=== PATIENT | female | born 2000 | race American Indian/Alaskan Native ===

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

== ENCOUNTER 2021-02-04 21:20 | Inpatient (IN) | payer MEDICAID ==
[2021-02-04] MEDS ORDERED: Diphtheria,Pertussis(Acell),Tetanus Vaccine 0.5 ML Syringe IM ONE (21:52)
[2021-02-04] MEDS: Lactated Ringers 1,000 ML IV SCH (22:05)
[2021-02-04 22:17] LABS: AMPHETAMINES,URINE NEGATIVE (NEGATIVE); BARBITURATES,URINE NEGATIVE (NEGATIVE); BENZODIAZEPINE,URINE NEGATIVE (NEGATIVE); MDMA (ECSTASY), URINE NEGATIVE (NEGATIVE); METHADONE,URINE NEGATIVE (NEGATIVE); METHAMPHETAMINES,URINE NEGATIVE (NEGATIVE); OPIATES,URINE NEGATIVE (NEGATIVE); OXYCODONE,URINE NEGATIVE (NEGATIVE); PHENCYCLIDINE,URINE NEGATIVE (NEGATIVE); TCA,URINE NEGATIVE (NEGATIVE)
[2021-02-04] MEDS ORDERED: Oxytocin/Normal Saline 60 UNIT/1,000 ML BAG ONE (22:53)
[2021-02-04] MEDS ORDERED: Morphine PF 10 MG/10 ML SDV ONE (22:57)
[2021-02-04] MEDS ORDERED: Ketorolac 30 MG/ML SDV IVPUSH ONE (22:57)
[2021-02-04] MEDS ORDERED: Propofol 200 MG/20 ML SDV IV ONE (22:57)
[2021-02-04] MEDS ORDERED: ceFAZolin 2 GM in Premix Bag 1 BAG IV ONE (23:00)
--- NOTE | 2021-02-04 23:43 | HP ---
CHIEF COMPLAINT: "I'm having contractions." HISTORY OF PRESENT ILLNESS: Ms. Harmon is a 20-year-old, 2, para 1-0-0- 1 female with last menstrual period unsure, who reports to [facility] in [facility] because of increasing force and frequency of contractions. She states she has been faby since 3 a.m. this morning and they have gotten worse. She was brought in by ambulance. She states that she has to push at times. We did get an ultrasound done and some new OB labs. Ultrasound put her at approximately 36 weeks gestation, aba breech presentation. She denies any nausea, vomiting, or diarrhea. No fever or chills. No hematochezia, hematemesis, hematuria. No dysuria, frequency or urgency with urination. No leg pain or back pain. All her abdominal discomfort in her abdomen is from her contractions. PAST MEDICAL HISTORY: Positive for asthma. No history of diabetes, cancer, thyroid disease, hypertension, heart disease, seizure disorder, thromboembolic disease, or breast lesions. She has never had a blood transfusion. FAMILY HISTORY: Positive for diabetes, cancer, heart disease, hypertension. No family history of kidney disease or thyroid disease. SOCIAL HISTORY: Patient smokes half a pack of cigarettes a day. She denies any alcohol use or illicit drug use. She lives in [facility]. She is single. She did get Moderna Covid Vaccine in . She just moved back to [facility] from [place]. OBSTETRICAL HISTORY: 06/23/2019, delivery of a viable male infant weighing 6 pounds 12 ounces via normal spontaneous vaginal delivery at 38 weeks gestation. No sequelae. She does not have that child with her at this time. ALLERGIES: No known drug allergies. PAST SURGICAL HISTORY: [place] teeth extraction. REVIEW OF SYSTEMS: All pertinent positive and negative review of systems per HPI. All other systems reviewed and negative. 10 point review of systems discussed with the patient. She has no other issues. OBJECTIVE: General: Well-developed, well-nourished female, in acute distress secondary to contractions. HEENT: Unremarkable. Neck: Supple without adenopathy. No thyromegaly. Lungs: Clear to auscultation. No wheezing, rhonchi, or rales noted. Cardiovascular: Regular rate and rhythm without murmurs. Abdomen: Gravid, nontender. Fundal height 36 cm, breech presentation. Back: No CVA tenderness. Genitourinary: Cervix completely dilated, bulging bag of mcdaniel, breech, noted to be ballotable and high. Extremities: No edema, erythema, or tenderness noted. ASSESSMENT: 1. A 20-year-old 2, para 1-0-0-1 female. 2. Active labor. 3. Completely dilated. 4. Aba breech presentation. 5. No care. 6. Nicotine addiction. PLAN: 1. The patient will be taken back for a primary section. 2. New OB labs accomplished today including CBC, rubella, syphilis, hepatitis C antibody, hepatitis B surface antigen, type and screen, GC, chlamydia, and group B strep. 3. The risks, benefits, complications, and side effects of the procedure were discussed with the patient including infection, bleeding, injury to the bowel, bladder, ureters, blood vessels, and fetus were discussed. Despite this, she still wants to have the procedure done. 4. All questions answered. [facility] /[id number] COMFORT
--- NOTE | 2021-02-04 23:48 | US ---
PROCEDURE INFORMATION: Exam: US After First Trimester, Transabdominal Exam date and time: 02/04/2021 9:44 PM Age: 20 years old Clinical indication: Pain; Other: Labor; Gestational age or lmp: 36 w 0 d; ; Additional info: No care, ? labor TECHNIQUE: Imaging protocol: Real-time transabdominal ultrasound of the maternal uterus with image documentation. Exam focused on the clinical indication. COMPARISON: No relevant prior studies available. FINDINGS: Gestation: Single live intrauterine gestation. heart rate: 132 bpm. presentation: Breech Placenta: Unremarkable. No evidence of previa. Placenta is fundal. Amniotic fluid: Amniotic fluid is appropriate for gestational age. MVP 3.8 cm; NANDO 12.6. Other: Subjectively decreased movements. BIOMETRY: Gestational age (AUA): 36 weeks 0 days Estimated due date (AUA): 03/04/2021 Estimated weight: 2474 g Biparietal diameter: 9.1 cm, 37 weeks 1 day Head circumference: 33.0 cm, 37 weeks 4 days Abdominal circumference: 29.1 cm, 33 weeks 1 day Femur length: 6.9 cm, 35 weeks 5 days MATERNAL: Uterus: Unremarkable. Cervix: Not measured. Right adnexa: Not evaluated. Left adnexa: Not evaluated. IMPRESSION: 1. Single living intrauterine fetus with estimated gestational age 36 weeks 0 days based on average ultrasound measurements in breech presentation. 2. Estimated weight 2474 g (5 lb 7 oz). Of note, the AC is measuring 4 weeks behind the BPD, which may reflect growth restriction. 3. Appropriate amniotic fluid. 4. Fundal placenta. 5. Subjectively decreased movements.
[2021-02-05] MEDS ORDERED: Tranexamic Acid 1,000 MG in Sodium Chloride 0.9% 100 ML IV PRN (00:03)
[2021-02-05] MEDS ORDERED: Carboprost Tromethamine 250 MCG/1 ML Amp IM PRN (00:03)
[2021-02-05] MEDS ORDERED: Acetaminophen 325 MG Tab PO PRN (00:03)
[2021-02-05] MEDS ORDERED: Naloxone 2 MG/2 ML Syringe IVPUSH PRN (00:03)
[2021-02-05] MEDS ORDERED: diphenhydrAMINE 50 MG/ML SDV IVPUSH PRN (00:03)
[2021-02-05] MEDS ORDERED: Methylergonovine 0.2 MG/1 ML Amp IM PRN (00:03)
[2021-02-05] MEDS ORDERED: Ondansetron 4 MG/2 ML SDV IVPUSH PRN (00:03)
[2021-02-05] MEDS ORDERED: Misoprostol 400 MCG (4 X 100 MCG TAB) RECTAL PRN (00:03)
[2021-02-05] MEDS ORDERED: ePHEDrine 50 MG/ML SDV IVPUSH PRN (00:03)
[2021-02-05] MEDS ORDERED: Oxytocin/Normal Saline 30 UNIT/500 ML BAG IV SCH (00:15)
--- NOTE | 2021-02-05 04:29 | PCM.SURGPN ---
- General Info Date of Service: 02/05/21 (POD/PPD # 1 S/P Primary section) Date of Surgery/Procedure: 02/04/21 POD#: 1 Post-Op Diagnosis: Breech presentation Active labor Functional Status: Reports: Pain Controlled, Tolerating Diet, Ambulating - Review of Systems General: Reports: No Symptoms HEENT: Reports: No Symptoms Pulmonary: Reports: No Symptoms Cardiovascular: Reports: No Symptoms Gastrointestinal: Reports: No Symptoms Genitourinary: Reports: No Symptoms Musculoskeletal: Reports: No Symptoms Skin: Reports: No Symptoms Neurological: Reports: No Symptoms Psychiatric: Reports: No Symptoms - Patient Data Vitals - Most Recent: Last Vital Signs Temp 96.8 F L 02/04/21 23:51 Pulse 76 02/05/21 00:17 Resp 18 02/05/21 00:17 BP 111/80 02/05/21 00:17 Pulse Ox 98 02/05/21 00:17 Weight - Most Recent: 220 lb I&O - Last 24 Hours: Intake & Output 02/04/21 02/04/21 02/05/21 14:59 22:59 06:59 Intake Total 282 Output Total 175 Balance 107 Lab Results Last 24 Hrs: Laboratory Results - last 24 hr 02/04/21 02/04/21 02/04/21 Range/Units 21:33 21:33 21:33 WBC (5.0-10.0) 10^3/uL RBC (4.2-5.4) 10^6/uL Hgb (12.0-16.0) g/dL Hct (37.0-47.0) % MCV (80-100) fL MCH (27.0-34.0) pg MCHC (33.0-35.0) g/dL Plt Count (150-450) 10^3/uL Urine Color Yellow (YELLOW) Urine Appearance Cloudy (CLEAR) Urine pH 7.5 (5.0-9.0) Ur Specific [place] 1.020 (1.005-1.030) Urine Protein Negative (NEGATIVE) Urine Glucose (UA) Negative (NEGATIVE) Urine Ketones Negative (NEGATIVE) Urine Occult Blood Negative (NEGATIVE) Urine Nitrite Negative (NEGATIVE) Urine Bilirubin Negative (NEGATIVE) Urine Urobilinogen 0.2 (0.2-1.0) mg/dL Ur Leukocyte Esterase Moderate H (NEGATIVE) Urine RBC 0-5 (0-5) /HPF Urine WBC 10-20 H (0-5/HPF) /HPF Ur Epithelial Cells Few (NOT SEEN) /HPF Amorphous Sediment Moderate H (NOT SEEN) /HPF Urine Bacteria Few (0-FEW/HPF) /HPF Urine Mucus Few H (NOT SEEN) /LPF Urine Other See note Urine Opiates Screen Negative (NEGATIVE) Ur Oxycodone Screen Negative (NEGATIVE) Urine Methadone Screen Negative (NEGATIVE) Ur Barbiturates Screen Negative (NEGATIVE) U Tricyclic Antidepress Negative (NEGATIVE) Ur Phencyclidine Scrn Negative (NEGATIVE) Ur Amphetamine Screen Negative (NEGATIVE) U Methamphetamines Scrn Negative (NEGATIVE) Urine MDMA Screen Negative (NEGATIVE) U Benzodiazepines Scrn Negative (NEGATIVE) Urine Cocaine Screen Negative (NEGATIVE) U Marijuana (THC) Screen Negative (NEGATIVE) HIV-1 Antibody (NONREACTIVE) HIV-2 Antibody (NONREACTIVE) HIV P24 Antigen (NONREACTIVE) SARS-CoV-2 RNA (PARISH) Negative (NEGATIVE) Blood Type Gel Antibody Screen 02/04/21 02/04/21 02/04/21 Range/Units 21:38 21:38 21:38 WBC 9.9 (5.0-10.0) 10^3/uL RBC 2.83 L (4.2-5.4) 10^6/uL Hgb 10.2 L (12.0-16.0) g/dL Hct 24.3 L (37.0-47.0) % MCV 85.9 (80-100) fL MCH 36.0 H (27.0-34.0) pg MCHC 42.0 H (33.0-35.0) g/dL Plt Count 252 (150-450) 10^3/uL Urine Color (YELLOW) Urine Appearance (CLEAR) Urine pH (5.0-9.0) Ur Specific [place] (1.005-1.030) Urine Protein (NEGATIVE) Urine Glucose (UA) (NEGATIVE) Urine Ketones (NEGATIVE) Urine Occult Blood (NEGATIVE) Urine Nitrite (NEGATIVE) Urine Bilirubin (NEGATIVE) Urine Urobilinogen (0.2-1.0) mg/dL Ur Leukocyte Esterase (NEGATIVE) Urine RBC (0-5) /HPF Urine WBC (0-5/HPF) /HPF Ur Epithelial Cells (NOT SEEN) /HPF Amorphous Sediment (NOT SEEN) /HPF Urine Bacteria (0-FEW/HPF) /HPF Urine Mucus (NOT SEEN) /LPF Urine Other Urine Opiates Screen (NEGATIVE) Ur Oxycodone Screen (NEGATIVE) Urine Methadone Screen (NEGATIVE) Ur Barbiturates Screen (NEGATIVE) U Tricyclic Antidepress (NEGATIVE) Ur Phencyclidine Scrn (NEGATIVE) Ur Amphetamine Screen (NEGATIVE) U Methamphetamines Scrn (NEGATIVE) Urine MDMA Screen (NEGATIVE) U Benzodiazepines Scrn (NEGATIVE) Urine Cocaine Screen (NEGATIVE) U Marijuana (THC) Screen (NEGATIVE) HIV-1 Antibody Non-reactive (NONREACTIVE) HIV-2 Antibody Non-reactive (NONREACTIVE) HIV P24 Antigen Non-reactive (NONREACTIVE) SARS-CoV-2 RNA (PARISH) (NEGATIVE) Blood Type O POSITIVE Gel Antibody Screen Negative Med Orders - Current: Current Medications Acetaminophen (Acetaminophen 325 Mg Tab) 650 mg PO Q6H PRN PRN Reason: Mild Pain (1-3) or Fever Carboprost Tromethamine (Carboprost Tromethamine 250 Mcg/1 Ml Amp) 250 mcg IM ONETIME PRN PRN Reason: Bleeding Diphenhydramine HCl (Diphenhydramine 50 Mg/Ml Sdv) 25 mg IVPUSH Q6H PRN PRN Reason: Itching or Nausea Docusate Sodium (Docusate Sodium 100 Mg Cap) 100 mg PO Q12H PRN PRN Reason: Constipation Ephedrine Sulfate (Ephedrine 50 Mg/Ml Sdv) 5 mg IVPUSH SEECOMMENT PRN PRN Reason: Other Ferrous Sulfate (Ferrous Sulfate 325 Mg Tab) 325 mg PO TIDMEALS [facility] Oxytocin/Sodium Chloride (Pitocin In Ns 30 Unit/500 Ml) 30 unit in 500 mls @ 2 mls/hr IV TITRATE [facility]; Protocol Last Admin: 02/04/21 23:50 Dose: 125 munits/min, 125 mls/hr Documented by: Lactated Ringer's (Ringers, Lactated) 1,000 mls @ 125 mls/hr IV ASDIRECTED [facility] Tranexamic Acid 1,000 mg/ (Sodium Chloride) 110 mls @ 660 mls/hr IV ONETIME PRN PRN Reason: Bleeding Ibuprofen (Ibuprofen 800 Mg Tab) 800 mg PO Q8H PRN PRN Reason: Cramping Ketorolac Tromethamine (Ketorolac 30 Mg/Ml Sdv) 15 mg IVPUSH Q6H [facility] Stop: 02/05/21 18:01 Methylergonovine Maleate (Methylergonovine 0.2 Mg/1 Ml Amp) 0.2 mg IM ONETIME PRN PRN Reason: Excessive Vaginal Bleeding Misoprostol (Misoprostol 400 Mcg (4 X 100 Mcg Tab)) 800 mcg RECTAL ASDIRECTED PRN PRN Reason: Excessive bleeding Naloxone HCl (Naloxone 2 Mg/2 Ml Syringe) 0.1 mg IVPUSH SEECOMMENT PRN PRN Reason: Respiratory Depression Ondansetron HCl (Ondansetron 4 Mg/2 Ml Sdv) 4 mg IVPUSH Q4H PRN PRN Reason: Nausea/Vomiting Oxycodone/Acetaminophen (Acetaminophen/Oxycodone 325-5 Mg Tab) 1 tab PO Q4H PRN PRN Reason: Pain (moderate 4-6) Oxycodone/Acetaminophen (Acetaminophen/Oxycodone 325-5 Mg Tab) 2 tab PO Q4H PRN PRN Reason: Pain (moderate 4-6) Prenat Multivit/[place]asper/Iron/Folic Ac ( Multivitamin With Calcium/Folic Acid/Iron Tab) 1 each PO DAILY [facility] Simethicone (Simethicone 80 Mg Tab.Chew) 160 mg PO QID [facility] Discontinued Medications Diphtheria/Tetanus/Acell Pertussis (Diphtheria,Pertussis(Acell),Tetanus Vaccine 0.5 Ml Syringe) 0.5 ml IM .ONCE ONE Stop: 02/04/21 21:53 Cefazolin Sodium/Dextrose (Ancef 2 Gm/50 Ml) Confirm Administered Dose 50 mls @ as directed .ROUTE .STK-MED ONE Stop: 02/04/21 22:54 Oxytocin/Sodium Chloride (Pitocin In Ns 30 Unit/500 Ml) Confirm Administered Dose 60 unit in 1,000 mls @ as directed .ROUTE .STK-MED ONE Stop: 02/04/21 22:54 - Exam Wound/Incisions: Healing Well, Dressing Dry and Intact General: Alert, Oriented, Cooperative, No Acute Distress HEENT: Pupils Equal, Pupils Reactive, EOMI, Mucous Membr. Moist/[place] Neck: Supple Lungs: Clear to Auscultation, Normal Respiratory Effort Cardiovascular: Regular Rate, Regular Rhythm, No Murmurs GI/Abdominal Exam: Normal Bowel Sounds, Soft, Non-Tender, No Distention, Other (Incision- Clean Dry Intact No erythema or drainage) Extremities: Normal Inspection, Normal Range of Motion, Non-Tender, No Pedal Edema Skin: Warm, Dry, Intact Neurological: No New Focal Deficit Psy/Mental Status: Alert, Normal Affect, Normal Mood Sepsis Event Note - Evaluation Sepsis Screening Result: No Definite Risk - Focused Exam Vital Signs: Vital Signs Temp Pulse Resp BP Pulse Ox Pulse Ox 02/05/21 00:17 76 18 111/80 98 02/05/21 00:15 76 18 111/79 99 02/05/21 00:10 63 16 119/84 98 02/05/21 00:05 62 16 120/81 100 02/05/21 00:00 68 19 120/81 97 02/04/21 23:55 80 19 117/84 96 02/04/21 23:51 96.8 F L 71 20 125/88 96 99 02/04/21 21:40 98.8 F 67 18 126/88 02/04/21 21:30 141/94 H - Problem List Review Problem List Initiated/Reviewed/Updated: Yes - My Orders Last 24 Hours: Active Orders 24 hr Category Date Time Status Patient Status [ADT] Routine ADT 02/05/21 00:04 Active Antiembolic Devices [RC] PER UNIT ROUTINE Care 02/05/21 00:05 Active Bedrest [RC] ASDIRECTED Care 02/05/21 00:04 Active Communication Order [RC] PER UNIT ROUTINE Care 02/05/21 00:04 Active Communication Order [RC] PER UNIT ROUTINE Care 02/05/21 00:04 Active Communication Order [RC] Per Unit Routine Care 02/05/21 00:04 Active Heart Rate [RC] CONTINUOUS Care 02/04/21 21:33 Active Intake and Output [RC] Q8H Care 02/05/21 00:06 Active Notify Provider Intake and Out [RC] ASDIRECTED Care 02/05/21 00:08 Active Notify Provider Vital Signs OB [RC] ASDIRECTED Care 02/05/21 00:04 Active OB Check [OM.PC] Click to Edit Care 02/04/21 21:33 Ordered RT Incentive Spirometry [RC] Q2HWA Care 02/05/21 00:04 Active Urinary Catheter Removal [RC] Per Unit Routine Care 02/05/21 00:04 Active Vaccines to be Administered [RC] PER UNIT ROUTINE Care 02/04/21 21:52 Active Vital Signs [RC] 00,04,08,12,16,20 Care 02/05/21 00:04 Active Clear Liquid Diet [DIET] Diet 02/05/21 Breakfast Active CBC W/O DIFF,HEMOGRAM [HEME] Routine Lab 02/06/21 07:00 Ordered CHLAMYDIA AND GONORRHEA BY TMA Routine Lab 02/04/21 21:33 Received CULTURE GROUP B STREP [RM] Routine Lab 02/04/21 22:45 Received CULTURE URINE [RM] Routine Lab 02/04/21 21:33 Received HBSAG SCREEN [REF] Urgent Lab 02/04/21 21:38 Received HEP C VIRUS AB [REF] Urgent Lab 02/04/21 21:38 Received RPR (SYPHILIS SERO) W/ RFLX [REF] Routine Lab 02/04/21 21:38 Received RUBELLA ANTIBODY, IGG [REF] Routine Lab 02/04/21 21:38 Received TRAMADOL, SCREEN ONLY, UR Routine Lab 02/04/21 21:33 Received Acetaminophen [TylenoL] Med 02/05/21 00:03 Active 650 mg PO Q6H PRN Acetaminophen/oxyCODONE [Percocet 325-5 MG] Med 02/05/21 00:03 Active 1 tab PO Q4H PRN Acetaminophen/oxyCODONE [Percocet 325-5 MG] Med 02/05/21 00:03 Active 2 tab PO Q4H PRN Carboprost Tromethamine [Hemabate DS] Med 02/05/21 00:03 Active 250 mcg IM ONETIME PRN Docusate Sodium [Colace] Med 02/05/21 00:03 Active 100 mg PO Q12H PRN Ferrous Sulfate Med 02/05/21 08:00 Active 325 mg PO TIDMEALS Ibuprofen [Motrin] Med 02/06/21 00:00 Active 800 mg PO Q8H PRN Ketorolac [Toradol] Med 02/05/21 06:00 Active 15 mg IVPUSH Q6H Lactated Ringers [Ringers, Lactated] 1,000 ml Med 02/05/21 00:15 Active IV ASDIRECTED Methylergonovine [Methergine] Med 02/05/21 00:03 Active 0.2 mg IM ONETIME PRN Naloxone [Narcan] Med 02/05/21 00:03 Active 0.1 mg IVPUSH SEECOMMENT PRN Ondansetron [Zofran] Med 02/05/21 00:03 Active 4 mg IVPUSH Q4H PRN Oxytocin/Normal Saline [Pitocin in NS 30 UNIT/500 ML] Med 02/05/21 00:15 Active 30 unit in 500 ml IV TITRATE Vit with Ca/FA/Iron [ Plus Iron] Med 02/05/21 09:00 Active 1 each PO DAILY Simethicone Med 02/05/21 09:00 Active 160 mg PO QID Tranexamic Acid [Cyklokapron] 1,000 mg Med 02/05/21 00:03 Active Sodium Chloride 0.9% [Normal Saline] 100 ml IV ONETIME diphenhydrAMINE [Benadryl] Med 02/05/21 00:03 Active 25 mg IVPUSH Q6H PRN ePHEDrine [ePHEDrine sulfate] Med 02/05/21 00:03 Active 5 mg IVPUSH SEECOMMENT PRN miSOPROStoL [Cytotec] Med 02/05/21 00:03 Active 800 mcg RECTAL ASDIRECTED PRN Antiembolic Hose [OM.PC] Per Unit Routine Oth 02/05/21 00:04 Ordered Assess Lochia [WOMSER] Per Unit Routine Oth 02/05/21 00:04 Ordered Assess Uterine Involution [WOMSER] Per Unit Routine Oth 02/05/21 00:04 Ordered Breast Pump [WOMSER] Per Unit Routine Oth 02/05/21 00:04 Ordered Sequential Compression Device [OM.PC] Per Unit Routine Oth 02/05/21 00:04 Ordered Resuscitation Status Routine Resus Stat 02/05/21 00:03 Ordered Medication Orders Acetaminophen (Acetaminophen 325 Mg Tab) 650 mg PO Q6H PRN PRN Reason: Mild Pain (1-3) or Fever Carboprost Tromethamine (Carboprost Tromethamine 250 Mcg/1 Ml Amp) 250 mcg IM ONETIME PRN PRN Reason: Bleeding Diphenhydramine HCl (Diphenhydramine 50 Mg/Ml Sdv) 25 mg IVPUSH Q6H PRN PRN Reason: Itching or Nausea Docusate Sodium (Docusate Sodium 100 Mg Cap) 100 mg PO Q12H PRN PRN Reason: Constipation Ephedrine Sulfate (Ephedrine 50 Mg/Ml Sdv) 5 mg IVPUSH SEECOMMENT PRN PRN Reason: Other Ferrous Sulfate (Ferrous Sulfate 325 Mg Tab) 325 mg PO TIDMEALS [facility] Oxytocin/Sodium Chloride (Pitocin In Ns 30 Unit/500 Ml) 30 unit in 500 mls @ 2 mls/hr IV TITRATE [facility]; Protocol Last Admin: 02/04/21 23:50 Dose: 125 munits/min, 125 mls/hr Documented by: FRANKY Lactated Ringer's (Ringers, Lactated) 1,000 mls @ 125 mls/hr IV ASDIRECTED [facility] Tranexamic Acid 1,000 mg/ (Sodium Chloride) 110 mls @ 660 mls/hr IV ONETIME PRN PRN Reason: Bleeding Ibuprofen (Ibuprofen 800 Mg Tab) 800 mg PO Q8H PRN PRN Reason: Cramping Ketorolac Tromethamine (Ketorolac 30 Mg/Ml Sdv) 15 mg IVPUSH Q6H [facility] Stop: 02/05/21 18:01 Methylergonovine Maleate (Methylergonovine 0.2 Mg/1 Ml Amp) 0.2 mg IM ONETIME PRN PRN Reason: Excessive Vaginal Bleeding Misoprostol (Misoprostol 400 Mcg (4 X 100 Mcg Tab)) 800 mcg RECTAL ASDIRECTED PRN PRN Reason: Excessive bleeding Naloxone HCl (Naloxone 2 Mg/2 Ml Syringe) 0.1 mg IVPUSH SEECOMMENT PRN PRN Reason: Respiratory Depression Ondansetron HCl (Ondansetron 4 Mg/2 Ml Sdv) 4 mg IVPUSH Q4H PRN PRN Reason: Nausea/Vomiting Oxycodone/Acetaminophen (Acetaminophen/Oxycodone 325-5 Mg Tab) 1 tab PO Q4H PRN PRN Reason: Pain (moderate 4-6) Oxycodone/Acetaminophen (Acetaminophen/Oxycodone 325-5 Mg Tab) 2 tab PO Q4H PRN PRN Reason: Pain (moderate 4-6) Prenat Multivit/[place]/Iron/Folic Ac ( Multivitamin With Calcium/Folic Acid/Iron Tab) 1 each PO DAILY [facility] Simethicone (Simethicone 80 Mg Tab.Chew) 160 mg PO QID [facility] - Assessment Assessment (Free Text/Narrative):: POD/PPD # 1 S/P Primary section Doing well - Plan Plan (Free Text/Narrative):: Continue present care Remove sanders catheter later today. Increase oral fluids and diet
[2021-02-05] MEDS: Lactated Ringers 1,000 ML IV SCH ×4 (05:09→16:10)
[2021-02-05] MEDS: Ketorolac 30 MG/ML SDV IVPUSH SCH ×3 (05:45→18:19)
[2021-02-05] MEDS: hydrOXYzine HCl 25 MG Tab PO SCH ×3 (08:20→18:23)
[2021-02-05] MEDS: Ferrous Sulfate 325 MG Tab PO SCH ×3 (08:20→18:18)
[2021-02-05] MEDS: Prenatal Multivitamin with Calcium/Folic Acid/Iron Tab PO SCH (08:21)
[2021-02-05] MEDS: Docusate Sodium 100 MG Cap PO PRN (08:21)
[2021-02-05] MEDS: Simethicone 80 MG Tab.Chew PO SCH ×3 (08:21→18:18)
--- NOTE | 2021-02-05 09:35 | OR ---
DATE: 02/04/2021 PREOPERATIVE DIAGNOSES: 1. A 20-year-old, 2, para 1-0-0-1 female. 2. Active labor. 3. Advanced dilatation. 4. No care. 5. Frederick breech presentation. 6. Nicotine addiction. POSTOPERATIVE DIAGNOSES: 1. A 20-year-old, 2, para 1-0-0-1 female. 2. Active labor. 3. Advanced dilatation. 4. No care. 5. Frederick breech presentation. 6. Nicotine addiction. 7. Delivery of a viable male infant, weighing 5 pounds 13 ounces, 18-3/4 inches long with score of 7 at 1 minute, 9 at 5 minutes. PROCEDURE: Primary low transverse section via Pfannenstiel skin incision. ASSISTANTS: 1. Sherri Cummings MD. 2. Ray Bell, 3rd year resident. COMPLICATIONS: None. ANESTHESIA: Spinal with Duramorph. ESTIMATED BLOOD LOSS: 700 mL. DRAINS: Barrios catheter. PATHOLOGY: None sent. FINDINGS: Normal uterus, tubes, and ovaries. Viable male infant, frederick breech presentation. DETAILS OF PROCEDURE: The patient was taken back to the operating room with an IV running. She was placed supine on the operating room table. After adequate spinal anesthesia with Duramorph was obtained, she was prepped and draped in the usual sterile fashion in the dorsal supine position with a leftward tilt. After a time-out was accomplished. A Pfannenstiel skin incision was then made. This was carried down to the fascia with care. The fascia was nicked in the midline, extended laterally. The fascia was taken off the rectus muscles superiorly and inferiorly. The rectus muscles were in the midline. The peritoneal cavity was entered. An Franklin ring retractor was then placed. A low-transverse incision in the uterus was then accomplished. Once the uterus was entered, clear fluid was noted. The infant's breech was then brought through the incision as well as rest of the infant. There was a nuchal cord x1 loosely around the neck. Once the entire infant was delivered, the nose and mouth were suctioned. Cord was clamped and cut. The was handed off to Dr. Sherri Cummings. Cord blood was obtained. The placenta was then delivered by simple expression intact. The uterus was externalized and cleared of all clots and debris. The uterus, tubes, and ovaries were inspected. 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 Everything else looked normal. The uterus was then returned to the abdomen. The gutters were cleared of all clots and debris. The uterine incision was then reapproximated with #1 Vicryl suture in a double-layer closure. Excellent hemostasis was noted. Sterile water was then used to irrigate the pelvis and abdomen and again the gutters were cleared of all clots and debris. The uterine incision was hemostatic. At this point, the rectus muscles and peritoneum were reapproximated with 0 chromic suture in a running, nonlocked fashion. The fascia was then reapproximated with 0 PDS suture in a running, nonlocked fashion. The subcutaneous tissue was irrigated warm sterile water and dried. The skin was reapproximated with 4-0 Monocryl suture in a running subcuticular fashion. Once this was accomplished, Dermabond was placed. The patient tolerated the procedure quite well. All sponges, needles, and instrument counts were correct by the nurse in attendance x2. The patient received 2 g of Ancef IV before the procedure. The patient received 20 units of Pitocin IV after delivery of the placenta. The patient was taken to PACU awake and in stable condition. [facility] /[id number]
[2021-02-05] MEDS ORDERED: Oxytocin/Normal Saline 30 UNIT/500 ML BAG IV ONE ×2 (16:09→16:10)
[2021-02-06] MEDS: Acetaminophen/oxyCODONE 325-5 MG Tab PO PRN ×4 (00:23→20:39)
[2021-02-06] MEDS: Lactated Ringers 1,000 ML IV SCH (00:25)
[2021-02-06] MEDS: Simethicone 80 MG Tab.Chew PO SCH ×5 (00:31→20:41)
[2021-02-06] MEDS: hydrOXYzine HCl 25 MG Tab PO SCH (00:31)
[2021-02-06] MEDS: Ferrous Sulfate 325 MG Tab PO SCH ×3 (09:42→18:05)
[2021-02-06] MEDS: Prenatal Multivitamin with Calcium/Folic Acid/Iron Tab PO SCH (09:42)
--- NOTE | 2021-02-06 10:31 | PN ---
DATE: 02/06/2021 SUBJECTIVE: Postoperative day #2, status post primary low transverse section for breech presentation. The patient really has not been out of bed much. She reports that she is not passing any flatus, not had a bowel movement. Nurses report urine output was initially slow in the Barrios, but now it has been picking up and running clear and should be coming out later on today. She has been tolerating a regular diet. No shortness of breath or chest pain. Reporting diffuse abdominal pain, but not really specific incisional pain. She also has a small sore on her lower left ankle that she reports she sustained about a month ago when she was stepping over the bed frame near the [facility] and caught her skin on it. She has not really done much with it and reports that it does not hurt. Has not really had her baby in the room much overnight, but nurses also report previous physician ordered scheduled Vistaril and that seemed to make the patient quite sleepy, so they felt better keeping baby in the nursery. Visitors have not really been by and Metalizing Machine Operator should be coming to help with disposition of the baby as the patient lives alone and there is a concern since she has no care. OBJECTIVE: Vital Signs: Temperature is 98.7, pulse 86, blood pressure 111/65, respiratory rate of 16, O2 saturations 97% on room air. Heart: Regular without murmur. Lungs: Clear to auscultation bilaterally. Abdomen: Soft, nondistended. There is some generalized report of discomfort with palpation. Incision site is clean, dry, and intact. Bowel sounds are hypoactive. Extremities: Trace edema. No erythema or tenderness. Deep abrasion on the left lower ankle, approximately 2 cm in diameter. No surrounding erythema. There is white slough present inside the wound bed. LABORATORY DATA: Hemoglobin down to 8.9, platelets 225. Additional labs, she is rubella immune. Remainder of labs are still pending. Urine was too contaminated to culture. ASSESSMENT: 1. Postoperative day #2. 2. Primary low transverse section. 3. 2, para 1-1-0-2. 4. Anxiety disorder. 5. History of gestational hypertension prior . 6. Anxiety. 7. Asthma. 8. Learning disability. 9. Obesity. 10.Smoker. 11.Deep abrasion, left ankle. PLAN: Start wet-to-dry dressings on the abrasion and reassess tomorrow for removal of slough. Debridement may be necessary, and we will decide on at-home wound care therapy that would be simply effective. Continue routine postoperative cares, have her up and ambulating more today and make sure that we get the bowels moving. The patient's report of pain is out of proportion and getting a read on her assessment is difficult. She cannot give me any sort of value on a number scale nor tell me if she has any normal pain tolerance. All she says is that she does not like pain and she has never had any surgeries for comparison. [facility] /[id number]
[2021-02-06] MEDS: Ibuprofen 800 MG Tab PO PRN ×2 (12:10→20:39)
[2021-02-06 14:46] LABS: C.TRACHOMATIS BY TMA Negative (Negative); N.GONORRHOEAE BY TMA Positive (Negative)
[2021-02-06] MEDS: Docusate Sodium 100 MG Cap PO PRN (20:40)
[2021-02-06] MEDS ORDERED: cefTRIAXone 500 MG, Lidocaine 1% 1 ML IM ONE ×2 (21:03)
[2021-02-06] MEDS ORDERED: Doxycycline Monohydrate 100 MG Cap PO SCH (21:15)
[2021-02-07] MEDS: Acetaminophen/oxyCODONE 325-5 MG Tab PO PRN ×3 (05:11→21:40)
[2021-02-07] MEDS: Ibuprofen 800 MG Tab PO PRN ×2 (05:12→17:17)
[2021-02-07] MEDS: Simethicone 80 MG Tab.Chew PO SCH ×4 (08:16→21:42)
[2021-02-07] MEDS: Prenatal Multivitamin with Calcium/Folic Acid/Iron Tab PO SCH (08:17)
[2021-02-07] MEDS: Ferrous Sulfate 325 MG Tab PO SCH ×3 (08:17→17:16)
--- NOTE | 2021-02-07 08:56 | PN ---
DATE: 02/07/2021 SUBJECTIVE: Technically postoperative day #3, however, we are only about 57 hours post delivery. The patient reports yesterday went a little bit better after she got up and started walking around. She has started passing flatus. She has had the urge to have a bowel movement, but does not want to strain too hard, though she has not had 1 yet. Voiding seems to be going well. No chest pain or shortness of breath. Seems to be bonding with her baby and has elected to bottle feed. Act English Tutor has been involved because of lack of care and the patient reports that she can get a car seat from a friend and her mother lives in the apartment building next to her to be able to help her out at home. She was also informed last night that she tested positive for gonorrhea and that was treated with Rocephin and doxycycline. The patient denies ever having any symptoms of an STI. OBJECTIVE: Vital Signs: Temperature is 97.5, pulse 83, blood pressure 117/74, respiratory rate of 16, and O2 saturations 98% on room air. Heart: Regular without obvious murmur. Lungs: Clear to auscultation bilaterally. The patient reports she is using incentive spirometry. Abdomen: Soft, tender only near the incision site. Incision site is clean, dry, and intact. Bowel sounds are hypoactive, but present in all 4 quadrants. Extremities: Trace edema. No erythema or tenderness. Ankle is currently wrapped with gauze. Pictures in the chart show that the wound has been debrided nicely with a wet-to-dry dressing. ASSESSMENT: 1. Status post primary day #3. 2. 2, para 1-1-0-2. 3. History of attention deficit hyperactivity disorder. 4. Anxiety. 5. Asthma. 6. Learning disabilities. 7. Obesity. 8. Smoker. 9. Reason for was breech presentation. 10.Gonorrhea. 11.Ankle wound not infected. 12.Anemia of and acute blood loss. PLAN: Continue normal postoperative cares. Spent today getting details, worked out with Act English Tutor and ensuring she has adequate education for postoperative cares as well as managing the ankle wound that is present. Discussed with her the presence of the gonorrhea and that was treated with 500 mg of IM Rocephin and we will also have her on 100 mg of doxycycline for 7 days. It was an uncomplicated infection, however, the patient did have a , therefore I felt coverage with dual antibiotic therapy was appropriate. [facility] /[id number]
[2021-02-07] MEDS: Doxycycline Monohydrate 100 MG Cap PO SCH ×2 (10:31→21:40)
[2021-02-07] MEDS: Docusate Sodium 100 MG Cap PO PRN (21:40)
[2021-02-08] MEDS: Ibuprofen 800 MG Tab PO PRN ×2 (02:03→15:02)
[2021-02-08] MEDS: Acetaminophen/oxyCODONE 325-5 MG Tab PO PRN ×2 (02:04→09:08)
[2021-02-08] MEDS: Simethicone 80 MG Tab.Chew PO SCH ×2 (09:01→15:02)
[2021-02-08] MEDS: Prenatal Multivitamin with Calcium/Folic Acid/Iron Tab PO SCH (09:01)
[2021-02-08] MEDS: Docusate Sodium 100 MG Cap PO PRN (09:01)
[2021-02-08] MEDS: Ferrous Sulfate 325 MG Tab PO SCH ×2 (09:01→16:09)
[2021-02-08] MEDS: Doxycycline Monohydrate 100 MG Cap PO SCH (10:06)
== END 2021-02-08 15:20 | disposition home or self-care (01) | DRG 788 ==
LOC: DL.OBCHECK 21:20 → DL.OB 22:40 → OBSVTOIN 23:12 → DL.OB 23:12
PROVIDERS: ADMIT Obstetrics & Gynecology; ATTEND Obstetrics & Gynecology
PROC: 10D00Z1 Extraction of Products of Conception, Low, Open Approach (ICD-10-PCS; principal; 2021-02-04)
DX: O32.1XX0 Maternal care for breech presentation, not applicable or unspecified (principal); Z3A.36 36 weeks gestation of pregnancy; Z37.0 Single live birth; O99.334 Smoking (tobacco) complicating childbirth; F17.210 Nicotine dependence, cigarettes, uncomplicated; O69.81X0 Labor and delivery complicated by cord around neck, without compression, not applicable or unspecified; Z20.822 Contact with and (suspected) exposure to COVID-19
CPT/HCPCS: 36415; 51702; 76815; 80305-QW; 80307; 81001; 85027; 86592; 86762; 86803; 86850; 86900; 86901; 87081; 87086; 87340; 87389; 87491; 87591; 90471; 90715; A9270-GY; J0690; J0696; J1885; J2270; J2405; J2590; J2704; J7120; U0002

== ENCOUNTER 2022-02-22 18:17 | Emergency (ER) | payer MEDICAID ==
[2022-02-22] MEDS ORDERED: Doxycycline Monohydrate 100 MG Cap PO ONE (20:13)
== END 2022-02-22 20:22 | disposition home or self-care (01) ==
LOC: DL.ED 18:17
DX: L03.115 Cellulitis of right lower limb (principal); F17.210 Nicotine dependence, cigarettes, uncomplicated; E66.9 Obesity, unspecified; Z68.30 Body mass index [BMI] 30.0-30.9, adult
CPT/HCPCS: 87070; 87077; 87186; 99283; A9270

== ENCOUNTER 2022-08-08 14:50 | Observation (INO) | payer MEDICAID ==
[2022-08-08] MEDS ORDERED: Sodium Chloride 0.9% 10 ML Syringe FLUSH PRN (15:11)
[2022-08-08 19:03] LABS: AMPHETAMINES,URINE POSITIVE (NEGATIVE); BARBITURATES,URINE NEGATIVE (NEGATIVE); BENZODIAZEPINE,URINE NEGATIVE (NEGATIVE); MDMA (ECSTASY), URINE NEGATIVE (NEGATIVE); METHADONE,URINE NEGATIVE (NEGATIVE); METHAMPHETAMINES,URINE POSITIVE (NEGATIVE); OPIATES,URINE NEGATIVE (NEGATIVE); OXYCODONE,URINE NEGATIVE (NEGATIVE); PHENCYCLIDINE,URINE NEGATIVE (NEGATIVE); TCA,URINE NEGATIVE (NEGATIVE)
[2022-08-08] MEDS ORDERED: Acetaminophen 500 MG Tab PO PRN (20:36)
[2022-08-08] MEDS ORDERED: Sodium Chloride 0.9% 10 ML Syringe FLUSH SCH (21:00)
[2022-08-09] MEDS ORDERED: cefTRIAXone 1 GM Vial IVPUSH ONE (08:45)
== END 2022-08-09 09:30 | disposition home or self-care (01) ==
LOC: DL.BLOODTR 14:50 → DL.OB 15:11
PROVIDERS: ADMIT Family Medicine; ATTEND Family Medicine
DX: O99.012 Anemia complicating pregnancy, second trimester (principal); D50.9 Iron deficiency anemia, unspecified; O99.512 Diseases of the respiratory system complicating pregnancy, second trimester; J45.909 Unspecified asthma, uncomplicated; O99.342 Other mental disorders complicating pregnancy, second trimester; F90.9 Attention-deficit hyperactivity disorder, unspecified type; F41.9 Anxiety disorder, unspecified; O99.212 Obesity complicating pregnancy, second trimester; E66.9 Obesity, unspecified; O99.332 Smoking (tobacco) complicating pregnancy, second trimester; F17.210 Nicotine dependence, cigarettes, uncomplicated; O99.322 Drug use complicating pregnancy, second trimester; F12.90 Cannabis use, unspecified, uncomplicated; Z98.891 History of uterine scar from previous surgery; Z79.899 Other long term (current) drug therapy; Z3A.24 24 weeks gestation of pregnancy
CPT/HCPCS: 36415; 36430; 76805; 80305; 81001; 82728; 83540; 83550; 84466; 85008; 85025; 85045; 86850; 86880; 86900; 86901; 86920; 86922; 96374; G0378; J0696; P9016

== ENCOUNTER 2022-09-04 16:08 | Emergency (ER) | payer MEDICAID ==
[2022-09-04 17:11] LABS: ANION GAP 14.4 mEq/L (7-13)
[2022-09-04 17:16] LABS: AMPHETAMINES,URINE POSITIVE (NEGATIVE); BARBITURATES,URINE NEGATIVE (NEGATIVE); BENZODIAZEPINE,URINE NEGATIVE (NEGATIVE); MDMA (ECSTASY), URINE POSITIVE (NEGATIVE); METHADONE,URINE NEGATIVE (NEGATIVE); METHAMPHETAMINES,URINE POSITIVE (NEGATIVE); OPIATES,URINE NEGATIVE (NEGATIVE); OXYCODONE,URINE NEGATIVE (NEGATIVE); PHENCYCLIDINE,URINE NEGATIVE (NEGATIVE); TCA,URINE NEGATIVE (NEGATIVE)
== END 2022-09-04 17:39 | disposition home or self-care (01) ==
LOC: DL.ED 16:08
DX: O99.891 Other specified diseases and conditions complicating pregnancy (principal); M79.89 Other specified soft tissue disorders; O99.211 Obesity complicating pregnancy, first trimester; O99.321 Drug use complicating pregnancy, first trimester; F19.10 Other psychoactive substance abuse, uncomplicated; Z91.013 Allergy to seafood; Z3A.01 Less than 8 weeks gestation of pregnancy
CPT/HCPCS: 36415; 80053; 80305-QW; 81001; 83615; 83735; 84100; 85025; 85384; 85610; 87086; 99283

== ENCOUNTER 2022-11-25 01:08 | Inpatient (IN) | payer MEDICAID ==
[2022-11-25] MEDS ORDERED: Citric Acid/Sodium Citrate Solution 30 ML Cup ONE (01:27)
[2022-11-25] MEDS ORDERED: Citric Acid/Sodium Citrate Solution 30 ML Cup PO ONE (01:27)
[2022-11-25] MEDS ORDERED: fentaNYL 100 MCG/2 ML SDV ONE (01:29)
[2022-11-25] MEDS ORDERED: ceFAZolin 2 GM Vial ONE (01:31)
[2022-11-25] MEDS ORDERED: ceFAZolin 2 GM Vial IVPUSH ONE (01:31)
[2022-11-25] MEDS ORDERED: Oxytocin/Normal Saline 30 UNIT/500 ML BAG IV SCH (01:40)
[2022-11-25] MEDS ORDERED: Lidocaine 1% 30 ML SDV INJECT ONE (01:40)
[2022-11-25] MEDS ORDERED: Lidocaine 1% 30 ML SDV ONE (01:49)
[2022-11-25 01:50] LABS: BASOPHILS PERCENT AUTO 0.2 % (0.0-1.0); EOSINOPHILS PERCENT AUTO 0.1 % (1.0-3.0); HEMATOCRIT 22.8 % (37.0-47.0); HEMOGLOBIN 8.6 g/dL (12.0-16.0); LYMPHOCYTES PERCENT AUTO 29.8 % (20.5-50.1); MEAN CORPUSCULAR HEMOGLOBIN 31.7 pg (27.0-34.0); MEAN CORPUSCULAR HGB CONC 37.7 g/dL (33.0-35.0); MEAN CORPUSCULAR VOLUME 84.1 fL (80-100); MONOCYTES PERCENT AUTO 6.7 % (2-8); NEUTROPHILS PERCENT AUTO 63.2 % (42.2-75.2); PLATELET COUNT,PLT 318 10^3/uL (150-450); RED BLOOD CELL COUNT 2.71 10^6/uL (4.2-5.4); WHITE BLOOD CELL COUNT,WBC 12.6 10^3/uL (5.0-10.0)
[2022-11-25 02:02] LABS: ALANINE AMINOTRANSFERASE,ALT 12 U/L (14-59); ALBUMIN 2.5 g/dL (3.4-5.0); ALKALINE PHOSPHATASE 190 U/L (46-116); ANION GAP 16.9 mEq/L (7-13); ASPARTATE AMNIOTRANSFERASE,AST 29 U/L (15-37); BILIRUBIN TOTAL 0.2 mg/dL (0.2-1.0); BLOOD UREA NITROGEN,BUN 12 mg/dL (7-18); BUN/CREATININE RATIO 9.2 (No establ ref range); CALCIUM 8.5 mg/dL (8.5-10.1); CARBON DIOXIDE,CO2 19 mmol/L (21-32); CHLORIDE,CL 103 mmol/L (98-107); CREATININE 1.31 mg/dL (0.55-1.02); GLUCOSE RANDOM 97 mg/dL (70-99); POTASSIUM,K 3.9 mmol/L (3.5-5.1); PROTEIN TOTAL,TP 8.3 g/dL (6.4-8.2); SODIUM,NA 135 mmol/L (136-145)
[2022-11-25 02:05] LABS: A/G RATIO 0.43; ESTIMATED GFR 59 mL/min (>=60)
[2022-11-25] MEDS ORDERED: Oxytocin 10 Units/1 ML SDV IM PRN (02:33)
[2022-11-25] MEDS ORDERED: Sodium Chloride 0.9% 10 ML Syringe FLUSH PRN (02:33)
[2022-11-25] MEDS ORDERED: Witch Hazel Medicated Pads 100/Jar TOP PRN (02:33)
[2022-11-25] MEDS ORDERED: Misoprostol 400 MCG (4 X 100 MCG TAB) RECTAL PRN (02:33)
[2022-11-25] MEDS ORDERED: Simethicone 80 MG Tab.Chew PO PRN (02:33)
[2022-11-25] MEDS ORDERED: Benzocaine/Menthol 20%-0.5% Spray 78 GM Cannister TOP PRN (02:33)
[2022-11-25] MEDS ORDERED: Carboprost Tromethamine 250 MCG/1 ML Amp IM PRN (02:33)
[2022-11-25] MEDS ORDERED: Tranexamic Acid 1,000 MG in Sodium Chloride 0.9% 100 ML IV PRN (02:33)
[2022-11-25] MEDS ORDERED: Acetaminophen 325 MG Tab PO PRN (02:33)
[2022-11-25] MEDS ORDERED: fentaNYL 100 MCG/2 ML SDV IVPUSH ONE (02:43)
[2022-11-25] MEDS ORDERED: Lactated Ringers 1,000 ML IV SCH (02:45)
[2022-11-25] MEDS ORDERED: Sodium Chloride 0.9% 1,000 ML IV SCH (02:45)
[2022-11-25 07:30] LABS: MEAN CORPUSCULAR HEMOGLOBIN 32.8 pg (27.0-34.0); MEAN CORPUSCULAR HGB CONC 37.1 g/dL (33.0-35.0); MEAN CORPUSCULAR VOLUME 88.6 fL (80-100); RED BLOOD CELL COUNT 2.01 10^6/uL (4.2-5.4); WHITE BLOOD CELL COUNT,WBC 17.4 10^3/uL (5.0-10.0)
[2022-11-25 07:33] LABS: AMPHETAMINES,URINE NEGATIVE (NEGATIVE); BARBITURATES,URINE NEGATIVE (NEGATIVE); BENZODIAZEPINE,URINE NEGATIVE (NEGATIVE); MDMA (ECSTASY), URINE NEGATIVE (NEGATIVE); METHADONE,URINE NEGATIVE (NEGATIVE); METHAMPHETAMINES,URINE POSITIVE (NEGATIVE); OPIATES,URINE NEGATIVE (NEGATIVE); OXYCODONE,URINE NEGATIVE (NEGATIVE); PHENCYCLIDINE,URINE NEGATIVE (NEGATIVE); TCA,URINE NEGATIVE (NEGATIVE)
[2022-11-25 07:38] LABS: HEMOGLOBIN 6.6 g/dL (12.0-16.0)
[2022-11-25 07:39] LABS: HEMATOCRIT 17.8 % (37.0-47.0)
[2022-11-25 07:41] LABS: CREATININE 1.07 mg/dL (0.55-1.02); EST CRCL DRUG DOSING (CG) 74.21 mL/min
[2022-11-25] MEDS: Prenatal Multivitamin with Calcium/Folic Acid/Iron Tab PO SCH (09:23)
[2022-11-25] MEDS: Ferrous Sulfate 325 MG Tab PO SCH ×2 (09:23→21:15)
[2022-11-25] MEDS: Docusate Sodium 100 MG Cap PO PRN ×2 (09:23→21:15)
[2022-11-25] MEDS: Ibuprofen 800 MG Tab PO PRN ×2 (09:23→21:15)
[2022-11-25] MEDS: Sodium Chloride 0.9% 10 ML Syringe FLUSH SCH ×2 (09:24→21:16)
[2022-11-26 06:35] LABS: MEAN CORPUSCULAR HEMOGLOBIN 34.4 pg (27.0-34.0); MEAN CORPUSCULAR HGB CONC 37.8 g/dL (33.0-35.0); RED BLOOD CELL COUNT 1.89 10^6/uL (4.2-5.4); WHITE BLOOD CELL COUNT,WBC 14.4 10^3/uL (5.0-10.0)
[2022-11-26 06:40] LABS: HEMATOCRIT 17.2 % (37.0-47.0); HEMOGLOBIN 6.5 g/dL (12.0-16.0)
[2022-11-26] MEDS: Ferrous Sulfate 325 MG Tab PO SCH (08:22)
[2022-11-26] MEDS: Docusate Sodium 100 MG Cap PO PRN (08:22)
[2022-11-26] MEDS: Ibuprofen 800 MG Tab PO PRN (08:22)
[2022-11-26] MEDS: Prenatal Multivitamin with Calcium/Folic Acid/Iron Tab PO SCH (08:22)
[2022-11-26] MEDS: Sodium Chloride 0.9% 10 ML Syringe FLUSH SCH (08:23)
== END 2022-11-26 18:15 | disposition home or self-care (01) | DRG 806 ==
LOC: DL.OBCHECK 01:08 → DL.OB 01:40
PROVIDERS: ADMIT Family Medicine; ATTEND Family Medicine
PROC: 10E0XZZ Delivery of Products of Conception, External Approach (ICD-10-PCS; principal; 2022-11-25)
DX: O48.0 Post-term pregnancy (principal); Z3A.40 40 weeks gestation of pregnancy; Z37.0 Single live birth; O99.324 Drug use complicating childbirth; O99.02 Anemia complicating childbirth; D64.9 Anemia, unspecified; F15.10 Other stimulant abuse, uncomplicated; O34.211 Maternal care for low transverse scar from previous cesarean delivery; O99.334 Smoking (tobacco) complicating childbirth; F17.200 Nicotine dependence, unspecified, uncomplicated; O62.3 Precipitate labor; O77.0 Labor and delivery complicated by meconium in amniotic fluid; O99.892 Other specified diseases and conditions complicating childbirth; N28.9 Disorder of kidney and ureter, unspecified; E86.0 Dehydration; E88.09 Other disorders of plasma-protein metabolism, not elsewhere classified
CPT/HCPCS: 36415; 59409; 80053; 80305-QW; 82565; 85025; 85027; 86592; 86803; 86850; 86900; 86901; A9270-GY; J0690; J2590; J3010; J3490; J7030; J7120

== ENCOUNTER 2024-06-15 14:42 | Observation (INO) | payer MEDICAID ==
[2024-06-15] MEDS ORDERED: Sodium Chloride 0.9% 10 ML Syringe FLUSH PRN ×2 (16:28→20:45)
[2024-06-15] MEDS ORDERED: Tranexamic Acid 1,000 MG in Sodium Chloride 0.9% 100 ML IV PRN ×2 (16:28→20:45)
[2024-06-15] MEDS ORDERED: Methylergonovine 0.2 MG Tab PO PRN ×2 (16:28→20:45)
[2024-06-15] MEDS ORDERED: Oxytocin 10 Units/1 ML SDV IM PRN ×2 (16:28→20:45)
[2024-06-15] MEDS ORDERED: Carboprost Tromethamine 250 MCG/1 ML Amp IM PRN ×3 (16:28→20:45)
[2024-06-15] MEDS: Lactated Ringers 1,000 ML IV SCH ×3 (16:30→21:10)
[2024-06-15] MEDS ORDERED: Oxytocin/Normal Saline 30 UNIT/500 ML BAG IV SCH (16:30)
[2024-06-15] MEDS ORDERED: Oxytocin/Normal Saline 30 UNIT/500 ML BAG IV ONE (16:31)
[2024-06-15] MEDS ORDERED: Lactated Ringers 1,000 ML IV ONE (16:31)
[2024-06-15] MEDS ORDERED: Phenylephrine 1% 10 MG/ML SDV IV ONE (16:31)
[2024-06-15] MEDS ORDERED: Tranexamic Acid 1,000 MG/10 ML Vial IV ONE (16:31)
[2024-06-15] MEDS ORDERED: Ketorolac 30 MG/ML SDV IVPUSH ONE (16:31)
[2024-06-15] MEDS ORDERED: Dexamethasone 4 MG/ML SDV IV ONE (16:31)
[2024-06-15] MEDS ORDERED: Ondansetron 4 MG/2 ML SDV IV ONE (16:31)
[2024-06-15 16:35] LABS: BASOPHILS PERCENT AUTO 1.1 % (0.0-1.0); EOSINOPHILS PERCENT AUTO 0.2 % (1.0-3.0); HEMOGLOBIN 7.2 g/dL (12.0-16.0); LYMPHOCYTES PERCENT AUTO 27.9 % (20.5-50.1); MEAN CORPUSCULAR HGB CONC 36.5 g/dL (33.0-35.0); MEAN CORPUSCULAR VOLUME 82.1 fL (80-100); MONOCYTES PERCENT AUTO 6.1 % (2-8); NEUTROPHILS PERCENT AUTO 64.7 % (42.2-75.2); PLATELET COUNT,PLT 325 10^3/uL (150-450); WHITE BLOOD CELL COUNT,WBC 9.2 10^3/uL (5.0-10.0)
[2024-06-15 16:49] LABS: HEMATOCRIT 19.7 % (37.0-47.0)
[2024-06-15 17:06] LABS: AMPHETAMINES,URINE NEGATIVE (NEGATIVE); BARBITURATES,URINE NEGATIVE (NEGATIVE); BENZODIAZEPINE,URINE NEGATIVE (NEGATIVE); MDMA (ECSTASY), URINE NEGATIVE (NEGATIVE); METHADONE,URINE NEGATIVE (NEGATIVE); METHAMPHETAMINES,URINE NEGATIVE (NEGATIVE); OPIATES,URINE NEGATIVE (NEGATIVE); OXYCODONE,URINE NEGATIVE (NEGATIVE); PHENCYCLIDINE,URINE NEGATIVE (NEGATIVE); TCA,URINE NEGATIVE (NEGATIVE)
[2024-06-15] MEDS ORDERED: Ketorolac 30 MG/ML SDV ONE (19:35)
[2024-06-15] MEDS ORDERED: Tranexamic Acid 1,000 MG/10 ML Vial ONE (19:35)
[2024-06-15] MEDS ORDERED: Ondansetron 4 MG/2 ML SDV ONE (19:35)
[2024-06-15] MEDS ORDERED: Dexamethasone 4 MG/ML SDV ONE (19:35)
[2024-06-15] MEDS ORDERED: ceFAZolin 2 GM Vial ONE (19:36)
[2024-06-15] MEDS ORDERED: diphenhydrAMINE 50 MG/ML SDV IVPUSH PRN (20:45)
[2024-06-15] MEDS ORDERED: ePHEDrine 50 MG/ML SDV IVPUSH PRN (20:45)
[2024-06-15] MEDS ORDERED: Misoprostol 100 MCG Tab RECTAL PRN (20:45)
[2024-06-15] MEDS ORDERED: Lactated Ringers 1,000 ML IV SCH ×2 (20:45)
[2024-06-15] MEDS ORDERED: Naloxone 2 MG/2 ML Syringe IVPUSH PRN (20:45)
[2024-06-15] MEDS ORDERED: Acetaminophen 325 MG Tab PO PRN (20:45)
[2024-06-15] MEDS ORDERED: Diphtheria,Pertussis(Acell),Tetanus Vaccine 0.5 ML Syringe IM ONE (20:45)
[2024-06-15] MEDS ORDERED: Methylergonovine 0.2 MG/1 ML Amp IM PRN (20:45)
[2024-06-15] MEDS ORDERED: Acetaminophen/oxyCODONE 325-5 MG Tab PO PRN (20:45)
[2024-06-15] MEDS ORDERED: Ibuprofen 800 MG Tab PO SCH (20:45)
[2024-06-15] MEDS ORDERED: Sodium Chloride 0.9% 10 ML Syringe FLUSH SCH (21:00)
[2024-06-15] MEDS: Oxytocin/Normal Saline 30 UNIT/500 ML BAG IV SCH (21:10)
[2024-06-15] MEDS: ceFAZolin 2 GM Vial IVPUSH ONE (22:48)
[2024-06-15] MEDS: Ferrous Sulfate 325 MG Tab PO SCH (22:49)
[2024-06-15] MEDS: Sodium Chloride 0.9% 10 ML Syringe FLUSH SCH (22:50)
[2024-06-15] MEDS: Prenatal Multivitamin with Calcium/Folic Acid/Iron Tab PO SCH (22:50)
[2024-06-16] MEDS: Ketorolac 30 MG/ML SDV IVPUSH SCH ×2 (00:02→02:59)
[2024-06-16] MEDS: Simethicone 80 MG Tab.Chew PO SCH (00:02)
[2024-06-16] MEDS: Ondansetron 4 MG/2 ML SDV IVPUSH PRN (01:00)
[2024-06-16 06:34] LABS: MEAN CORPUSCULAR HEMOGLOBIN 26.9 pg (27.0-34.0); MEAN CORPUSCULAR HGB CONC 33.7 g/dL (33.0-35.0); MEAN CORPUSCULAR VOLUME 79.8 fL (80-100); RED BLOOD CELL COUNT 2.42 10^6/uL (4.2-5.4); WHITE BLOOD CELL COUNT,WBC 13.8 10^3/uL (5.0-10.0)
[2024-06-16 06:42] LABS: HEMATOCRIT 19.3 % (37.0-47.0); HEMOGLOBIN 6.5 g/dL (12.0-16.0)
[2024-06-16] MEDS ORDERED: diphenhydrAMINE 50 MG/ML SDV IVPUSH PRN (07:34)
[2024-06-16] MEDS: Docusate Sodium 100 MG Cap PO PRN (08:27)
[2024-06-16] MEDS: Famotidine 20 MG/2 ML SDV IVPUSH ONE (08:27)
[2024-06-16] MEDS: Promethazine 25 MG/ML SDV IM ONE (08:46)
[2024-06-16] MEDS: Furosemide 20 MG/2 ML VIAL IVPUSH ONE (13:18)
[2024-06-16] MEDS ORDERED: Ibuprofen 800 MG Tab PO SCH (16:00)
[2024-06-16 19:07] LABS: HEMATOCRIT 22.9 % (37.0-47.0); HEMOGLOBIN 7.3 g/dL (12.0-16.0)
[2024-06-16] MEDS: Ibuprofen 800 MG Tab PO SCH (22:36)
[2024-06-17] MEDS: Acetaminophen/oxyCODONE 325-5 MG Tab PO PRN (04:13)
[2024-06-17] MEDS ORDERED: guaiFENesin 600 MG Tab.ER PO PRN (08:08)
[2024-06-17] MEDS ORDERED: Benzocaine/Cetylpyridinium/Menthol Lozenge MUCMEM PRN (08:09)
[2024-06-17 09:07] LABS: CORONAVIRUS COVID-19 NAA NEGATIVE (NEGATIVE); INFLUENZA A NAA NEGATIVE (NEGATIVE); INFLUENZA B NAA NEGATIVE (NEGATIVE)
[2024-06-17] MEDS: Mineral Oil/Petrolatum Oint 100 GM OINT TOP PRN (12:22)
[2024-06-17 13:47] LABS: C.TRACHOMATIS BY TMA Positive (Negative); N.GONORRHOEAE BY TMA Negative (Negative); SOURCE GENITAL
[2024-06-18 07:33] LABS: HEMATOCRIT 23.3 % (37.0-47.0); MEAN CORPUSCULAR HEMOGLOBIN 25.3 pg (27.0-34.0); MEAN CORPUSCULAR VOLUME 84.1 fL (80-100); RED BLOOD CELL COUNT 2.77 10^6/uL (4.2-5.4)
[2024-06-18 08:06] LABS: ALBUMIN 1.6 g/dL (3.4-5.0); ANION GAP 12.9 mEq/L (7-13); BILIRUBIN TOTAL 0.1 mg/dL (0.2-1.0); BUN/CREATININE RATIO 13.4 (No establ ref range); CALCIUM 8.4 mg/dL (8.5-10.1); CREATININE 1.19 mg/dL (0.55-1.02); EST CRCL DRUG DOSING (CG) 66.16 mL/min; POTASSIUM,K 4.9 mmol/L (3.5-5.1); PROTEIN TOTAL,TP 5.9 g/dL (6.4-8.2)
[2024-06-18 08:10] LABS: A/G RATIO 0.37
[2024-06-18 08:23] LABS: CREATININE,URINE RAND 37.03 mg/dL (No establ ref range); PROTEIN CREATININE RATIO,URINE 1031.6 mg/g (<150.0); PROTEIN,URINE RANDOM 38.2 mg/dL (0.0-11.9)
[2024-06-18] MEDS ORDERED: Calcium Gluconate 10% 1 GM/10 ML SDV IVPUSH PRN (08:59)
[2024-06-18] MEDS ORDERED: Magnesium Sulfate/Water 20 GM/500 ML Premix Bag IV SCH (09:00)
[2024-06-18] MEDS: Azithromycin 250 MG Tab PO ONE ×2 (10:01→10:30)
[2024-06-18] MEDS: Magnesium Sulfate/Water Premix 4 GM in Premix Bag 1 BAG IV ONE (10:04)
[2024-06-18] MEDS: Magnesium Sulfate/Water Premix 20 GM in Premix Bag 1 BAG IV SCH (10:28)
[2024-06-18 19:41] LABS: HCV QNT BY NAAT (IU/ML) Not Detected; HCV QNT BY NAAT (LOG IU/ML) Not Detected log IU/mL; HCV QNT BY NAAT INTERP Not Detected (Not Detected)
[2024-06-19 05:36] LABS: ALBUMIN 1.9 g/dL (3.4-5.0); BILIRUBIN TOTAL 0.1 mg/dL (0.2-1.0); BUN/CREATININE RATIO 15.7 (No establ ref range); CALCIUM 8.6 mg/dL (8.5-10.1); CREATININE 1.15 mg/dL (0.55-1.02); EST CRCL DRUG DOSING (CG) 68.46 mL/min; PROTEIN TOTAL,TP 6.6 g/dL (6.4-8.2)
[2024-06-19 06:07] LABS: A/G RATIO 0.4
[2024-06-21 12:46] LABS: HCV GENOTYPE BY SEQUENCING Indeterminate
== END 2024-06-19 12:10 | disposition home or self-care (01) ==
LOC: DL.OBCHECK 14:42 → DL.OB 16:30
PROVIDERS: ADMIT Family Medicine; ATTEND Family Medicine
DX: O14.14 Severe pre-eclampsia complicating childbirth (principal); O99.214 Obesity complicating childbirth; E66.9 Obesity, unspecified; O99.02 Anemia complicating childbirth; D64.9 Anemia, unspecified; B19.20 Unspecified viral hepatitis C without hepatic coma; F90.9 Attention-deficit hyperactivity disorder, unspecified type; R41.89 Other symptoms and signs involving cognitive functions and awareness; F17.210 Nicotine dependence, cigarettes, uncomplicated; Z3A.40 40 weeks gestation of pregnancy; Z37.0 Single live birth
CPT/HCPCS: 0240U; 36415; 36430; 51702; 59025; 59514; 80053; 80305; 82570; 83735; 84156; 85014; 85018; 85025; 85027; 86592; 86850; 86900; 86901; 86920; 86922; 87081; 87210; 87430; 87491; 87522; 87591; 87902; A9270; C1729; J1100; J1885; J1940; J2371; J2405; J2550; J2590; J3475; J7120; P9016

== ENCOUNTER 2025-02-02 15:03 | Emergency (ER) | payer SELFPAY ==
[2025-02-02] MEDS: Ketorolac 30 MG/ML SDV IM ONE (15:58)
[2025-02-02] MEDS: Orphenadrine 60 MG/2 ML Inj IM ONE (15:59)
[2025-02-02 16:34] LABS: APPEARANCE,URINE CLOUDY (CLEAR); GLUCOSE,URINE NEGATIVE (NEGATIVE); OCCULT BLOOD,URINE TRACE-INTACT (NEGATIVE)
[2025-02-02 16:38] LABS: AMPHETAMINES,URINE POSITIVE (NEGATIVE); BARBITURATES,URINE NEGATIVE (NEGATIVE); MDMA (ECSTASY), URINE POSITIVE (NEGATIVE); METHAMPHETAMINES,URINE POSITIVE (NEGATIVE); OPIATES,URINE NEGATIVE (NEGATIVE); OXYCODONE,URINE NEGATIVE (NEGATIVE); PHENCYCLIDINE,URINE NEGATIVE (NEGATIVE); TCA,URINE NEGATIVE (NEGATIVE)
[2025-02-02 17:07] LABS: EPITHELIAL CELLS,URINE FEW /HPF (NOT SEEN)
[2025-02-02] MEDS: cefTRIAXone 1 GM, Lidocaine 1% 2.1 ML IM ONE (17:10)
== END 2025-02-02 18:39 | disposition home or self-care (01) ==
LOC: DL.ED 15:03
DX: N30.00 Acute cystitis without hematuria (principal); F15.90 Other stimulant use, unspecified, uncomplicated; F16.19 Hallucinogen abuse with unspecified hallucinogen-induced disorder; I10 Essential (primary) hypertension; E66.9 Obesity, unspecified; Z79.899 Other long term (current) drug therapy; Z91.013 Allergy to seafood; Z79.4 Long term (current) use of insulin; Z68.34 Body mass index [BMI] 34.0-34.9, adult
CPT/HCPCS: 74176; 80305; 81001; 81025; 87086; 87088; 87186; 96372; 99284; J0696; J1885; J2003; J2360

== ENCOUNTER 2025-02-03 09:29 | Emergency (ER) | payer SELFPAY | END 2025-02-03 10:53 | disposition home or self-care (01) | LOC: DL.ED 09:29 | DX: M53.3 Sacrococcygeal disorders, not elsewhere classified (principal); J45.909 Unspecified asthma, uncomplicated; Z91.013 Allergy to seafood; Z79.899 Other long term (current) drug therapy; Z79.4 Long term (current) use of insulin | CPT/HCPCS: 99284; A9270; 99283 ==

== ENCOUNTER 2025-02-03 22:53 | Emergency (ER) | payer SELFPAY | END 2025-02-04 00:08 | disposition home or self-care (01) | LOC: DL.ED 22:53 | DX: M54.50 Low back pain, unspecified (principal); Z91.013 Allergy to seafood; Z79.899 Other long term (current) drug therapy; Z79.4 Long term (current) use of insulin | CPT/HCPCS: 99284; A9270; J7512; 99283 ==

== ENCOUNTER 2025-04-02 09:42 | Emergency (ER) | payer MEDICAID | END 2025-04-02 10:08 | disposition home or self-care (01) | LOC: DL.ED 09:42 | DX: L29.9 Pruritus, unspecified (principal); T50.905A Adverse effect of unspecified drugs, medicaments and biological substances, initial encounter; E66.9 Obesity, unspecified; Z79.4 Long term (current) use of insulin; Z79.899 Other long term (current) drug therapy; Z68.34 Body mass index [BMI] 34.0-34.9, adult | CPT/HCPCS: 99282; 99283 ==